=== PATIENT | female | born 1930 | race Caucasian/White ===

== ENCOUNTER 2018-02-21 20:37 | Inpatient (IN) | payer MEDICARE, BC ==
[~2018-02-21] VITALS: Ht 154.9 cm; Wt 65.8 kg
--- NOTE | 2018-02-21 20:50 | NUR ---
TO BED 10 BIB PARAMEDICS C/O ABDOMINAL PAIN WITH N/V. PT AAOX2 NO ACUTE DISTRESS NOTED, RESP EVEN AND UNLABORED. PLACE PT ON CARDIAC MONITORING, CONTINUOUS POX, O2@2L/NC. PENDING ER MD KEENAN.
--- NOTE | 2018-02-21 20:52 | NUR ---
SHARON GARCIA AT [facility] TO REE PT WITH ORDERS RECEIVED. WILL CARRY OUT ORDERS.
[2018-02-21] MEDS ORDERED: IV NS 0.9% 1,000 ML BAG IV ONE (21:00)
[2018-02-21] MEDS ORDERED: ACETAMINOPHEN 650 MG/SUPP.RECT RC ONE ×2 (21:00→21:38)
[2018-02-21] MEDS ORDERED: PIPERACILLIN /TAZOBACTAM 3.375 G in IV D5W 50 ML IV ONE (21:00)
--- NOTE | 2018-02-21 21:02 | NUR ---
Bisi howell in [facility] - 02/21/18 at 2103 by SALVADOR CALLED PHAN FOR PANEL CALL AND DR EMANUEL WAS PAGED.
--- NOTE | 2018-02-21 21:25 | NUR ---
STARTED SL 18G TO R WRIST, BLOOD DRAWN AND SENT TO LAB.
[2018-02-21 21:38] LABS: BASOPHILS # (AUTO) 0.2 /CMM (0.0-0.2); BASOPHILS % (AUTO) 1.4 % (0.0-2.0); EOSINOPHILS % (AUTO) 1.1 % (0.0-6.0); HEMATOCRIT 40 % (33-45); HEMOGLOBIN 13.6 g/dL (11.5-14.8); LYMPHOCYTES # (AUTO) 1.7 /CMM (0.8-4.8); LYMPHOCYTES % (AUTO) 10.8 % (20.0-44.0); MEAN CORPUSCULAR HGB CONC 34 g/dl (31.0-36.0); MEAN CORPUSCULAR VOLUME 91 fL (82-100); MONOCYTES # (AUTO) 1.4 /CMM (0.1-1.30); MONOCYTES % (AUTO) 8.7 % (2.0-12.0); NEUTROPHILS # (AUTO) 12.4 /CMM (1.8-8.9); PLATELET COUNT (AUTO) 499 /CMM (150-450); RDW COEFFICIENT OF VARIATION 16.2 (11.5-15.0); RED BLOOD CELL COUNT(AUTO) 4.39 MIL/uL (4.0-5.2); WHITE BLOOD COUNT (AUTO) 15.9 K/uL (4.3-11.0)
[2018-02-21] MEDS ORDERED: ONDANSETRON HCL/PF 4 MG/2 ML VIAL ONE (21:38)
--- NOTE | 2018-02-21 21:41 | NUR ---
PT TRANSPORTED TO RADIOLOGY FOR CT ABD/PELVIS.
[2018-02-21 21:53] LABS: INR 1.06 (0.85-1.15)
[2018-02-21 21:56] LABS: ALANINE AMINOTRANSFERASE 23 U/L (12-78); ALBUMIN 3.7 g/dL (3.4-5.0); ALKALINE PHOSPHATASE 116 U/L (46-116); ASPARTATE AMINOTRANSFERASE 28 U/L (15-37); BILIRUBIN,DIRECT 0.2 mg/dL (0.0-0.2); CALCIUM, SERUM 9.9 mg/dL (8.5-10.1); CARBON DIOXIDE 20 mmol/L (21-32); CHLORIDE 101 mmol/L (98-107); CREATININE 0.9 mg/dL (0.6-1.3); GLUCOSE 133 mg/dL (74-106); POTASSIUM 4.3 mmol/L (3.5-5.1); SODIUM SERUM 137 mmol/L (136-145); TOTAL PROTEIN, SERUM 8.1 g/dL (6.4-8.2); UREA NITROGEN, BLOOD 8 mg/dL (7-18)
[2018-02-21 21:57] LABS: TROPONIN I < 0.017 ng/mL (0.00-0.056)
[2018-02-21] MEDS ORDERED: ONDANSETRON HCL/PF - ER 4 MG/2 ML VIAL IV ONE (22:00)
--- NOTE | 2018-02-21 22:10 | NUR ---
PT BACK FROM RADIOLOGY. PENDING CT ABD/PELVIS RESULT.
--- NOTE | 2018-02-21 22:16 | NUR ---
TOTAL PT CARE DONE.
[2018-02-21] MEDS ORDERED: PIPERACILLIN /TAZOBACTAM 3.375 G VIAL IV ONE (22:18)
--- NOTE | 2018-02-21 22:25 | NUR ---
I&O CATH DONE BY ALFONSO MONTOYA. URINE SAMPLE COLLECTED AND SENT TO LAB. NOTED APPROXIMATELY 500ML'S OF CLEAR YELLOW URINE.
[2018-02-21 22:45] LABS: APPEARANCE,URINE CLEAR (CLEAR); BILIRUBIN,URINE NEGATIVE (NEGATIVE); BLOOD, URINE 1+ Ery/uL (NEGATIVE); COLOR,URINE YELLOW (YELLOW); KETONES,URINE NEGATIVE (NEGATIVE); LEUKOCYTE ESTERASE ,URINE NEGATIVE (NEGATIVE); NITRITE, URINE NEGATIVE (NEGATIVE); PH,URINE 8.5 (5.0-8.0); PROTEIN,URINE 2+ mg/dl (NEGATIVE); UGLUCOSE NEGATIVE (NEGATIVE); UROBILINOGEN,URINE 0.2 EU/dL (0.2)
--- NOTE | 2018-02-21 22:56 | NUR ---
[facility] ER MD SPOKE TO PT ANKITA REGARDING ADMISSION.
[2018-02-21 23:14] LABS: BACTERIA,URINE None seen /HPF (None Seen); SQUAMOUS EPITHELIAL CELL,UR Few /HPF (None Seen); WBC,URINE 0-2 /HPF (0-3)
--- NOTE | 2018-02-21 23:21 | NUR ---
CALLED NURSING MEDICAL BILLING AND CODING SPECIALIST AND REQUESTED A TELE BED FOR THIS PT.
[2018-02-21] MEDS ORDERED: IOHEXOL-300 100 ML VIAL IV ONE (23:22)
[2018-02-21] MEDS ORDERED: CT SWABBABLE VALVE TRANS SET 1 EA INFUS.SET MC ONE (23:22)
--- NOTE | 2018-02-21 23:23 | NUR ---
CALLED TAMIKA PRABHAKAR [phone] FOR PT'S REQUEST FOR TRANSFER TO [facility]. LEFT A MESSAGE.
--- NOTE | 2018-02-21 23:26 | NUR ---
DR. JUSTICE SPEAKING TO DR. POPE
--- NOTE | 2018-02-21 23:48 | NUR ---
PT BACK FROM RADIOLOGY. PENDING CT ABD/PELVIS RESULT.
--- NOTE | 2018-02-22 01:10 | NUR ---
PT ASLEEP, NO ACUTE DISTRESS NOTED, RESP EVEN AND UNLABORED. NO PAIN OR DISCOMFORT NOTED AT THIS TIME. CALL LIGHT WITHIN REACH. PT FAMILY MEMBERS AT BEDSIDE. WILL CONTINUE TO MONITOR PT CLOSELY.
[2018-02-22] MEDS ORDERED: Z GUARD REMEDY 2 OZ OINT TP PRN (02:30)
[2018-02-22] MEDS ORDERED: ONDANSETRON HCL/PF 4 MG/2 ML VIAL IVP PRN (02:30)
[2018-02-22] MEDS ORDERED: MAG HYDROX/AL HYDROX/SIMETH 30 ML UDC PO PRN (02:30)
[2018-02-22] MEDS ORDERED: ACETAMINOPHEN 325 MG TABLET PO PRN (02:30)
[2018-02-22] MEDS ORDERED: ENOXAPARIN SODIUM 40 MG/0.4 ML DISP.SYRIN SQ SCH (02:30)
[2018-02-22] MEDS ORDERED: MAGNESIUM HYDROXIDE 30 ML UDC PO PRN (02:30)
[2018-02-22] MEDS ORDERED: ZOLPIDEM TARTRATE 5 MG TABLET PO PRN (02:30)
[2018-02-22] MEDS ORDERED: HYDROCODONE/APAP 5/325MG 1 EACH TABLET PO PRN (02:30)
[2018-02-22] MEDS ORDERED: ALBUTEROL FS 2.5 MG/3 ML VIAL.NEB NEB PRN (03:00)
[2018-02-22] MEDS ORDERED: hydrALAZINE HCL 25 MG TABLET PO PRN (03:00)
--- NOTE | 2018-02-22 03:08 | NUR ---
REPORT CALLED TO F[employer]IT[facility] M[employer] DRIVERJENNIFER CORDERO. WILL TRANSPORT PT VIA ACLS PROTOCOL.
[2018-02-22 03:30] VITALS: BP 113/57
--- NOTE | 2018-02-22 03:35 | NUR ---
RN ADMITTING NOTES RECEIVED REPORT FROM [facility]. Pt ARRIVED TO THE FLOOR VIA GURNEY. WAS SAFELY TRANSFERRED TO THE BED. Pt IS A/OX1, VERY LETHARGIC, LIMITED ANSWERING TO QUESTIONS. BOTH DAUGHTERS AND SON AT BEDSIDE. HAS A HX OF LEFT ARM FRX/ELBOS SURGERY THAT IS STILL HEALING. PER FAMILY REQUEST PLEASE DO NOT TOUCH THE ARM IF POSSIBLE: NO BP AND NO LAB DRAW FROM THE LEFT ARM. IV ACCESS ON R WRIST #18G. ON TELE MONITOR. SAFETY MEASURES IN PLACE. BED LOW, LOCKED, HOB ELEVATED, SIDE RAILS UP, CALL LIGHT AND BEDSIDE TABLE WITHIN REACH. WILL CONTINUE TO MONITOR Pt THROUGHOUT THE NIGHT FOR SAFETY.
[2018-02-22 03:45] VITALS: BP 113/57
[2018-02-22] MEDS ORDERED: VANCOMYCIN 1 GM VIAL ONE (04:58)
[2018-02-22] MEDS ORDERED: VANCOMYCIN 1 GM in IV D5W 250 ML IV ONE (05:00)
[2018-02-22] MEDS ORDERED: PIPERACILLIN /TAZOBACTAM 3.375 G VIAL IV ONE (05:15)
[2018-02-22] MEDS: PIPERACILLIN /TAZOBACTAM 3.375 G in IV D5W 100 ML IV SCH ×2 (06:11→13:35)
--- NOTE | 2018-02-22 06:50 | NUR ---
RN CLOSING NOTES NO SIGNIFICANT CHANGES IN Pt's CONDITION DURING SHIFT. NO S/S OF ACUTE DISTRESS OR SOB NOTED DURING THE NIGHT. Pt REMAINS LETHARGIC. ON TELE MONITOR. ALL NEEDS MET AND ATTENDED TO. SAFETY MEASURES IN PLACE. WILL ENDORSE TO DAYSHIFT RN FOR Pt's CRISTIANA.
[2018-02-22] MEDS: ALBUTEROL FS 2.5 MG/3 ML VIAL.NEB NEB SCH ×3 (07:24→20:10)
[2018-02-22 08:00] VITALS: BP_SYST 93; BP_SYST 96; BP_DIAS 45; BP_DIAS 46
[2018-02-22] MEDS ORDERED: LEVO100T9 PO (08:47)
[2018-02-22] MEDS ORDERED: SIMV20TA6 PO (08:47)
[2018-02-22] MEDS ORDERED: METO25TA6 PO (08:47)
[2018-02-22] MEDS ORDERED: APIX2.5T PO (08:47)
[2018-02-22] MEDS ORDERED: POTA20TA83 PO (08:47)
[2018-02-22] MEDS ORDERED: ONDA4TAB5 PO (08:47)
[2018-02-22] MEDS ORDERED: CALC500T3 PO (08:47)
[2018-02-22] MEDS ORDERED: VANC125C11 PO (08:47)
[2018-02-22] MEDS ORDERED: ACET-868 PO (08:47)
[2018-02-22] MEDS ORDERED: IPRA0.2S49 IH (08:47)
[2018-02-22] MEDS ORDERED: ALBU2.5V13 IH (08:47)
[2018-02-22] MEDS ORDERED: OXYC-128 PO (08:47)
[2018-02-22] MEDS ORDERED: FEE PK DOSING 1 MIN EA MC ONE (08:48)
--- NOTE | 2018-02-22 09:30 | NUR ---
MS RN NOTES AWAKE, A/O X1, FOLLOW SIMPLE COMMANDS. OXYGEN AT 3L VIA NC, NO SOB. IVF NS INFUSING AT 125ML/HR. LOW BP 93/49 RECHECK MANUALLY BP 95/50, INFORMED DR. HOWELL, PER MONITOR TO MONITOR FOR RIGHT NOW, NO NEW ORDERS. SAFETY PRECAUTION MAINTAINED. WILL CONT TO MONITOR.
[2018-02-22] MEDS ORDERED: ALBUTEROL FS 2.5 MG/0.5 ML VIAL.NEB IH SCH (10:00)
[2018-02-22] MEDS ORDERED: oxyCODONE/APAP (5/325 MG) 1 UDTAB TABLET PO PRN ×2 (10:00)
[2018-02-22] MEDS ORDERED: IPRATROPIUM NEB FS 0.5 MG/2.5 ML AMPUL.NEB IH PRN (10:00)
[2018-02-22 10:04] LABS: CALCIUM, SERUM 8.1 mg/dL (8.5-10.1); CARBON DIOXIDE 23 mmol/L (21-32); CHLORIDE 104 mmol/L (98-107); CREATININE 0.9 mg/dL (0.6-1.3); GLUCOSE 96 mg/dL (74-106); POTASSIUM 3.7 mmol/L (3.5-5.1); SODIUM SERUM 137 mmol/L (136-145); UREA NITROGEN, BLOOD 8 mg/dL (7-18)
[2018-02-22] MEDS: IV NS 0.9% 1,000 ML IV PRN ×2 (10:40→14:36)
[2018-02-22 11:40] LABS: THYROID STIMULATING HORMONE 2.057 uIU/mL (0.358-3.74)
[2018-02-22] MEDS: POTASSIUM CHLORIDE 20 MEQ TAB.PRT.SR PO SCH ×2 (13:36→17:00)
--- NOTE | 2018-02-22 13:53 | NUR ---
SPOKE WITH MICHAEL/PHARMACY, CLARIFIED ZOSYN IV RATE, INFUSE ZOSYN 3.375 GM AT 100ML/HR.
--- NOTE | 2018-02-22 14:55 | NUR ---
PATIENT IS UNABLE TO EXPECTORATE SPUTUM, NON PRODUCTIVE COUGH. INFORMED DR. HOWELL, ORDERED TO INDUCE SPUTUM. WILL CONT TO MONITOR.
[2018-02-22 15:45] VITALS: BP 96/46
[2018-02-22 16:00] VITALS: BP 95/50
[2018-02-22] MEDS: METOPROLOL TARTRATE 25 MG TABLET PO SCH (17:00)
[2018-02-22] MEDS: LACTOBACILLUS RHAMNOSUS GG 1 EACH CAP.SPRINK PO SCH (17:00)
[2018-02-22] MEDS: PIPERACILLIN /TAZOBACTAM 3.375 G in IV D5W 50 ML IV SCH ×2 (18:03→23:55)
[2018-02-22] MEDS: APIXABAN 2.5 MG TABLET PO SCH (18:04)
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
--- NOTE | 2018-02-22 19:45 | NUR ---
RN OPENING NOTES RECEIVED REPORT FROM [facility]. FOUND Pt AWAKE, RESTING IN BED. FAMILY VISITING AT BEDSIDE. Pt's CONDITION HAS IMPROVED GREATLY. Pt IS MORE ALERT AND AWAKE, AND ABLE TO CONVERSE AND MAKE NEEDS KNOWN. NO S/S OF ACUTE DISTRESS OR SOB NOTED. IV ACCESS ON R HAND #22G, IVF NS @125ML/HR. SAFETY MEASURES IN PLACE. BED LOW, LOCKED, HOB ELEVATED, SIDE RAILS UP, CALL LIGHT AND BEDSIDE TABLE WITHIN REACH. WILL CONTINUE TO MONITOR Pt THROUGHOUT THE NIGHT FOR SAFETY.
[2018-02-22 20:00] VITALS: BP_SYST 91; BP_SYST 98; BP_DIAS 46; BP_DIAS 48
[2018-02-22] MEDS: SIMVASTATIN 20 MG TABLET PO SCH (22:24)
[2018-02-22] MEDS ORDERED: VANCOMYCIN 0.75 GM in IV D5W 250 ML IV SCH (23:00)
[2018-02-23] MEDS: ALBUTEROL FS 2.5 MG/3 ML VIAL.NEB NEB SCH ×4 (00:53→20:27)
[2018-02-23] MEDS: IV NS 0.9% 1,000 ML IV PRN (05:36)
[2018-02-23] MEDS: VANCOMYCIN 0.75 GM in IV D5W 250 ML IV SCH (05:36)
--- NOTE | 2018-02-23 06:34 | NUR ---
RN CLOSING NOTES NO SIGNIFICANT CHANGES IN Pt's CONDITION DURING SHIFT. NO S/S OF ACUTE DISTRESS OR SOB NOTED DURING THE NIGHT. ALL NEEDS MET AND ATTENDED TO. SAFETY MEASURES IN PLACE. WILL ENDORSE TO DAYSHIFT RN FOR Pt's CRISTIANA.
[2018-02-23] MEDS: PIPERACILLIN /TAZOBACTAM 3.375 G in IV D5W 50 ML IV SCH ×4 (06:53→23:17)
--- NOTE | 2018-02-23 07:30 | NUR ---
RN MS NOTES PT IN BED, AWAKE, ALERT AND VERBALLY RESPONSIVE, DENIES PAIN, STATED THAT SHE IS FEELING BETTER TODAY, NOT IN DISTRESS, IV FLUIDS INFUSING WELL, CALL LIGHT WITHIN REACH, KEPT AIRPORT SHUTTLE DRIVER BED.
[2018-02-23 07:43] LABS: BASOPHILS % (AUTO) 0.1 % (0.0-2.0); EOSINOPHILS % (AUTO) 3.9 % (0.0-6.0); HEMATOCRIT 31 % (33-45); HEMOGLOBIN 10.3 g/dL (11.5-14.8); LYMPHOCYTES # (AUTO) 0.9 /CMM (0.8-4.8); LYMPHOCYTES % (AUTO) 9.9 % (20.0-44.0); MEAN CORPUSCULAR HGB CONC 34 g/dl (31.0-36.0); MEAN CORPUSCULAR VOLUME 92 fL (82-100); MONOCYTES # (AUTO) 0.9 /CMM (0.1-1.30); MONOCYTES % (AUTO) 9.4 % (2.0-12.0); NEUTROPHILS % (AUTO) 76.7 % (43.0-81.0); PLATELET COUNT (AUTO) 319 /CMM (150-450); RDW COEFFICIENT OF VARIATION 17.7 (11.5-15.0); RED BLOOD CELL COUNT(AUTO) 3.32 MIL/uL (4.0-5.2); WHITE BLOOD COUNT (AUTO) 9.1 K/uL (4.3-11.0)
[2018-02-23 07:52] LABS: CALCIUM, SERUM 8.3 mg/dL (8.5-10.1); CARBON DIOXIDE 23 mmol/L (21-32); CHLORIDE 109 mmol/L (98-107); CREATININE 0.9 mg/dL (0.6-1.3); GLUCOSE 126 mg/dL (74-106); MAGNESIUM 1.7 mg/dL (1.8-2.4); SODIUM SERUM 141 mmol/L (136-145); UREA NITROGEN, BLOOD 6 mg/dL (7-18)
[2018-02-23 07:55] VITALS: BP 116/62
[2018-02-23] MEDS: LEVOTHYROXINE SODIUM 100 MCG TABLET PO SCH (07:57)
[2018-02-23] MEDS: ACETAMINOPHEN 325 MG TABLET PO SCH (08:35)
[2018-02-23] MEDS: LACTOBACILLUS RHAMNOSUS GG 1 EACH CAP.SPRINK PO SCH ×2 (08:36→17:20)
[2018-02-23] MEDS: APIXABAN 2.5 MG TABLET PO SCH ×2 (08:36→17:20)
[2018-02-23] MEDS: POTASSIUM CHLORIDE 20 MEQ TAB.PRT.SR PO SCH ×3 (08:36→17:20)
[2018-02-23] MEDS: CALCIUM CARBONATE (1250) 500 MG TABLET PO SCH (08:37)
[2018-02-23] MEDS: METOPROLOL TARTRATE 25 MG TABLET PO SCH ×2 (09:00→17:00)
[2018-02-23] MEDS: Magnesium 1GM/D5W 100ML PREMIX 100 ML IV SCH ×2 (09:13→10:34)
--- NOTE | 2018-02-23 09:23 | NUR ---
RN MS NOTES PT SEEN BY DR. HOWELL, ORDERS MADE, NOTED AND CARRIED OUT, PT ALSO SEEN BY DR. ENGL[place].
--- NOTE | 2018-02-23 11:58 | NUR ---
RN MS NOTES PT IN BED, AWAKE, ALERT AND ORIENTED, DENIES PAIN, NOT IN DISTRESS, SEEN BY PHYSICAL THERAPIST, TOLERATED EXERCISES WELL, NEEDS ATTENDED.
[2018-02-23 16:00] VITALS: BP 111/59
--- NOTE | 2018-02-23 18:55 | NUR ---
RN MS NOTES PT IN BED, AWAKE, ALERT AND ORIENTED, DENIES PAIN, NOT IN DISTRESS, CALL LIGHT WITHIN REACH, PER PT, SHE HAS PAIN ON HER LEFT ELBOW WHEN SHE MOVES IT, XRAY OF LEFT ELBOW ORDERED BY MD, PM CARE RENDERED, DUE MEDS GIVEN ORDERED, ALL NEEDS ATTENDED.
--- NOTE | 2018-02-23 19:00 | NUR ---
RN OPENING NOTES PT AWAKE, ALERT, AND RESTING IN BED. NO COMPLAINTS OF PAIN, SOB, OR DISTRESS AT THIS TIME. PT HAS A RIGHT HAND #22 IV INTACT AND PATENT. SAFETY PRECAUTIONS IN PLACE, BED IN LOW, LOCKED POSITION, X2 SIDE RAILS UP, AND CALL LIGHT WITHIN REACH. WILL CONTINUE TO MONITOR.
[2018-02-23 20:00] VITALS: BP 121/63
[2018-02-23] MEDS: SIMVASTATIN 20 MG TABLET PO SCH (21:08)
[2018-02-24] MEDS: ALBUTEROL FS 2.5 MG/3 ML VIAL.NEB NEB SCH ×4 (01:30→20:33)
[2018-02-24] MEDS: VANCOMYCIN 0.75 GM in IV D5W 250 ML IV SCH (04:12)
[2018-02-24] MEDS: PIPERACILLIN /TAZOBACTAM 3.375 G in IV D5W 50 ML IV SCH ×4 (05:23→23:29)
--- NOTE | 2018-02-24 06:43 | NUR ---
RN CLOSING NOTES PT AWAKE, ALERT, AND RESTING IN BED. NO COMPLAINTS OF PAIN, SOB, OR DISTRESS OVERNIGHT. PT HAS A RIGHT HAND #22 IV INTACT AND PATENT. ALL PT NEEDS MET. SAFETY PRECAUTIONS IN PLACE, BED IN LOW, LOCKED POSITION, X2 SIDE RAILS UP, AND CALL LIGHT WITHIN REACH. WILL ENDORSE TO DAY SHIFT NURSE FOR CONTINUITY OF CARE.
[2018-02-24 06:59] LABS: BASOPHILS % (AUTO) 0.5 % (0.0-2.0); EOSINOPHILS % (AUTO) 7.7 % (0.0-6.0); HEMATOCRIT 31 % (33-45); HEMOGLOBIN 10.3 g/dL (11.5-14.8); LYMPHOCYTES # (AUTO) 1.1 /CMM (0.8-4.8); LYMPHOCYTES % (AUTO) 13.3 % (20.0-44.0); MEAN CORPUSCULAR HGB CONC 34 g/dl (31.0-36.0); MEAN CORPUSCULAR VOLUME 92 fL (82-100); NEUTROPHILS # (AUTO) 5.4 /CMM (1.8-8.9); NEUTROPHILS % (AUTO) 66.5 % (43.0-81.0); PLATELET COUNT (AUTO) 330 /CMM (150-450); RDW COEFFICIENT OF VARIATION 18.4 (11.5-15.0); WHITE BLOOD COUNT (AUTO) 8.1 K/uL (4.3-11.0)
[2018-02-24 07:00] LABS: CALCIUM, SERUM 8.7 mg/dL (8.5-10.1); CARBON DIOXIDE 24 mmol/L (21-32); CHLORIDE 108 mmol/L (98-107); CREATININE 0.7 mg/dL (0.6-1.3); GLUCOSE 96 mg/dL (74-106); POTASSIUM 4.4 mmol/L (3.5-5.1); SODIUM SERUM 140 mmol/L (136-145); UREA NITROGEN, BLOOD 5 mg/dL (7-18)
--- NOTE | 2018-02-24 07:49 | NUR ---
RN OPENING NOTES RECEIVED PT. PT IS STABLE AND RESTING IN BED. NO S/S OF RESP DISTRESS OR SOB. PT DENIES PAIN. IV ACCESS LOCATED ON RIGHT HAND 22G, SL. PT TO CONTINUE IV ABX FOR PNA TX. SAFETY MEASURES IN PLACE, CALL LIGHT WITHIN REACH. WILL CONTINUE TO MONITOR.
[2018-02-24 08:28] VITALS: BP_SYST 134; BP_SYST 149; BP_DIAS 68; BP_DIAS 70
[2018-02-24] MEDS: POTASSIUM CHLORIDE 20 MEQ TAB.PRT.SR PO SCH ×3 (08:54→16:54)
[2018-02-24] MEDS: LEVOTHYROXINE SODIUM 100 MCG TABLET PO SCH (08:54)
[2018-02-24] MEDS: CALCIUM CARBONATE (1250) 500 MG TABLET PO SCH (08:54)
[2018-02-24] MEDS: LACTOBACILLUS RHAMNOSUS GG 1 EACH CAP.SPRINK PO SCH ×2 (08:54→16:54)
[2018-02-24] MEDS: METOPROLOL TARTRATE 25 MG TABLET PO SCH ×2 (08:55→16:54)
[2018-02-24] MEDS: ACETAMINOPHEN 325 MG TABLET PO SCH (08:55)
[2018-02-24] MEDS: APIXABAN 2.5 MG TABLET PO SCH ×2 (09:08→16:54)
[2018-02-24 16:13] VITALS: BP 135/68
--- NOTE | 2018-02-24 19:08 | NUR ---
RN CLOSING NOTES PT IN BED RESTING. NO S/S OF RESP DISTRESS OR SOB. NO C/O PAIN AT THIS TIME. RIGHT HAND 22G IV ACCESS INFILTRATED, ACCESS REMOVED. WILL INSERT NEW ACCESS. PER MD REPORT, PT TO CONT IV ABX THERAPY. ALL PT NEEDS ANTICIPATED AND MET. SAFETY MEASURES IN PLACE, CALL LIGHT IN REACH. WILL ENDORSE TO PHOTOGRAPHER FOR CRISTIANA.
[2018-02-24 20:00] VITALS: BP 122/62
--- NOTE | 2018-02-24 20:38 | NUR ---
RECIEVED MS. RINCON AWAKE AND ALERT SPEECH CLEAR GOOD EYE CONTACT SMILING AND ABLE TO VERBALIZE HER NEEDS. INCONTINENT OF US WEARS A DIAPER, NOTED WHEN CHANGING OF HER DIAPER SKIN CLEAN AND INTACT. REMINDED HER TO CALL US MUCH SHE NEEDS BUT NOT TO WEAR A WET DIAPER. CALL LIGHT REVIEWED WITH HER AND BED ALARM SET
[2018-02-24 21:49] VITALS: BP 122/62
[2018-02-24] MEDS: SIMVASTATIN 20 MG TABLET PO SCH (22:07)
[2018-02-25] MEDS: ALBUTEROL FS 2.5 MG/3 ML VIAL.NEB NEB SCH ×3 (01:01→13:40)
[2018-02-25 04:21] LABS: BASOPHILS % (AUTO) 0.3 % (0.0-2.0); EOSINOPHILS % (AUTO) 6.9 % (0.0-6.0); HEMATOCRIT 35 % (33-45); HEMOGLOBIN 11.9 g/dL (11.5-14.8); LYMPHOCYTES # (AUTO) 1.3 /CMM (0.8-4.8); LYMPHOCYTES % (AUTO) 14.4 % (20.0-44.0); MEAN CORPUSCULAR HGB CONC 34 g/dl (31.0-36.0); MEAN CORPUSCULAR VOLUME 92 fL (82-100); NEUTROPHILS # (AUTO) 6.3 /CMM (1.8-8.9); NEUTROPHILS % (AUTO) 67.4 % (43.0-81.0); PLATELET COUNT (AUTO) 381 /CMM (150-450); RDW COEFFICIENT OF VARIATION 18.6 (11.5-15.0); RED BLOOD CELL COUNT(AUTO) 3.84 MIL/uL (4.0-5.2); WHITE BLOOD COUNT (AUTO) 9.4 K/uL (4.3-11.0)
[2018-02-25 04:38] LABS: CALCIUM, SERUM 9.2 mg/dL (8.5-10.1); CARBON DIOXIDE 25 mmol/L (21-32); CHLORIDE 106 mmol/L (98-107); CREATININE 0.8 mg/dL (0.6-1.3); GLUCOSE 87 mg/dL (74-106); POTASSIUM 4.9 mmol/L (3.5-5.1); SODIUM SERUM 140 mmol/L (136-145); UREA NITROGEN, BLOOD 5 mg/dL (7-18); VANCOMYCIN,TROUGH 9 ug/ml (12-20)
[2018-02-25] MEDS: VANCOMYCIN 0.75 GM in IV D5W 250 ML IV SCH (04:56)
--- NOTE | 2018-02-25 05:11 | NUR ---
END OF SHIFT NOTES: MS. RINCON SLEPT THROUGH THE NIGHT. COOPERATIVE ABOUT BEING AWAKENED TO BE REPOSITIONED, FALLING BACK TO SLEEP EASILY. NO SOB THIS 12 HOURS, NO WHEEZING AUDIBLE, SKIN WARM AND DRY. WEARING 02 2 LITERS THRU OUT THE NIGHT WITH SATS 94 - 99 % VANCO TROUGH THIS AM @ 0400 IS 9, ORDERED VANCO IVPB UP AND RUNNING, PATIENT WILL BE MONITORED.
[2018-02-25] MEDS: PIPERACILLIN /TAZOBACTAM 3.375 G in IV D5W 50 ML IV SCH ×2 (06:32→13:31)
--- NOTE | 2018-02-25 07:54 | NUR ---
RN OPENING NOTES RECEIVED PT. PT IS STABLE AND RESTING IN BED. NO S/S OF RESP DISTRESS OR SOB. PT DENIES PAIN, HOWEVER CONTINUES TO GUARD LEFT ARM. IV ACCESS LOCATED ON RIGHT FA 22G, SL. PT TO CONTINUE IV ABX FOR PNA TX. SAFETY MEASURES IN PLACE, CALL LIGHT WITHIN REACH. WILL CONTINUE TO MONITOR.
[2018-02-25 08:00] VITALS: BP 129/66
[2018-02-25] MEDS: APIXABAN 2.5 MG TABLET PO SCH (08:24)
[2018-02-25] MEDS: ACETAMINOPHEN 325 MG TABLET PO SCH (08:25)
[2018-02-25] MEDS: LACTOBACILLUS RHAMNOSUS GG 1 EACH CAP.SPRINK PO SCH (08:26)
[2018-02-25] MEDS: LEVOTHYROXINE SODIUM 100 MCG TABLET PO SCH (08:26)
[2018-02-25] MEDS: CALCIUM CARBONATE (1250) 500 MG TABLET PO SCH (08:26)
[2018-02-25] MEDS: METOPROLOL TARTRATE 25 MG TABLET PO SCH (08:26)
[2018-02-25] MEDS ORDERED: LEVO500T75 PO (08:53)
[2018-02-25] MEDS ORDERED: LACT1CAP72 PO (08:53)
--- NOTE | 2018-02-25 17:10 | NUR ---
DISCHARGE NOTE PT DISCHARGED TO [facility]. VSS, NO S/S OF RESP DISTRESS OR SOB. NO C/O PAIN AT THIS TIME. REPORT CALLED AND GIVEN TO JENNIFER CHATMAN. DISCHARGE TEACHING PERFORMED UTILIZING [employer]. PT VERBALIZES UNDERSTANDING. DISCHARGE SUMMARY AND BELONGINGS LIST SIGNED, COPIED AND PLACED IN CHART. IV ACCESS AND ID BAND REMOVED. PT LEFT HOSPITAL IN AMBULANCE FOR FACILITY TRANSFER WITH PARAMEDICS.
== END 2018-02-25 17:21 | DRG 871 ==
LOC: ER 20:45 → TELE 02-22 02:05 → MED 02-22 08:58
PROVIDERS: ADMIT Internal Medicine; ATTEND Internal Medicine
DX: A41.9 Sepsis, unspecified organism (principal); J69.0 Pneumonitis due to inhalation of food and vomit; I26.99 Other pulmonary embolism without acute cor pulmonale; J15.6 Pneumonia due to other Gram-negative bacteria; G92 Toxic encephalopathy; D68.59 Other primary thrombophilia; E87.2 Acidosis; J15.9 Unspecified bacterial pneumonia; E83.42 Hypomagnesemia; I48.91 Unspecified atrial fibrillation; I10 Essential (primary) hypertension; Z87.19 Personal history of other diseases of the digestive system; Z79.01 Long term (current) use of anticoagulants; M48.00 Spinal stenosis, site unspecified; Z79.899 Other long term (current) drug therapy; R73.9 Hyperglycemia, unspecified; E03.9 Hypothyroidism, unspecified; E78.5 Hyperlipidemia, unspecified; Z87.81 Personal history of (healed) traumatic fracture; I25.10 Atherosclerotic heart disease of native coronary artery without angina pectoris
CPT/HCPCS: 36415; 70450-TC; 71045-TC; 71250-TC; 73080-TC; 80048-TC; 80076-TC; 80202-TC; 81000-TC; 82306; 83605-TC; 83690-TC; 83735-TC; 84100-TC; 84439-TC; 84443-TC; 84484-TC; 85025-TC; 85730-TC; 87040-TC; 87070-TC; 87081-TC; 87086-TC; 93307-TC; 94640-TC; 94799-TC; 97110-TC; 97116-TC; 97530-TC; A4216; A4606; J1650; J2405; J2543; J3370; J3475; J7030; J7040; J7050; J7060; Q9967; Z7610